=== PATIENT | male | born 1950 | race Caucasian/White ===

== ENCOUNTER 2018-08-17 20:39 | Inpatient (IN) | payer MEDICARE, OTHER ==
--- NOTE | 2018-08-17 23:09 | EDM.PDOC ---
ED HPI GENERAL MEDICAL PROBLEM - General Chief Complaint: Diabetic Complaint Stated Complaint: BLOOD SUGARS Time Seen by Provider: 08/17/18 21:16 Source of Information: Reports: Patient, EMS History Limitations: Reports: No Limitations - History of Present Illness INITIAL COMMENTS - FREE TEXT/NARRATIVE: This gentleman arrived by EMS because of low blood sugar. Somebody came to visit him and found that he was sort of" out of it". His blood sugar then was 49. He was given some oral glucose and followed by an amp of D50 and his blood sugar went up to 176. Patient says that he doesn't think he's had anything to eat all day long and he said he just doesn't know why. He maybe he ate some breakfast he doesn't really know. EMS said the cold about 5 would tics off of him. Patient says he gets tics all the time so that's no big deal. He said he's had 100s of tics already this spring. He has not taken any insulins today Treatments PRODUCTION DISPATCHER: Reports: IV/IO, Other (see below) Other Treatments PRODUCTION DISPATCHER: D50 and oral glucose - Related Data Allergies Allergy/AdvReac Type Severity Reaction Status Date / Time atorvastatin Allergy Other Verified 08/17/18 20:44 simvastatin Allergy Other Verified 08/17/18 20:44 Home Meds: Home Meds Levothyroxine Sodium [Synthroid] 125 mcg PO DAILY 03/26/18 [History] Lisinopril 2.5 mg PO DAILY 03/26/18 [History] Magnesium Oxide 420 mg PO DAILY 03/26/18 [History] metFORMIN [Glucophage] 1,000 mg PO BIDMEALS 03/26/18 [History] Insulin Glarg,Human.Rec.Analog [Lantus Solostar] 35 unit SUBCUT DAILY 08/17/18 [ History] Past Medical History Cardiovascular History: Reports: Hypertension Musculoskeletal History: Reports: Fracture, Other (See Below) Other Musculoskeletal History: Left hand at 8 years old. - Infectious Disease History Infectious Disease History: Reports: Chicken Pox - Past Surgical History HEENT Surgical History: Reports: Adenoidectomy, Tonsillectomy Social & Family History - Tobacco Use Smoking Status *Q: Never Smoker Second Hand Smoke Exposure: No - Caffeine Use Caffeine Use: Reports: Coffee - Recreational Drug Use Recreational Drug Use: No ED ROS GENERAL - Review of Systems Review Of Systems: ROS reveals no pertinent complaints other than HPI. ED EXAM GENERAL NO PERIP PULSE - Physical Exam Exam: See Below Exam Limited By: No Limitations General Appearance: Alert, WD/WN, No Apparent Distress Eye Exam: Bilateral Eye: Normal Inspection Throat/Mouth: Normal Inspection, Normal Oropharynx Head: Atraumatic Neck: Normal Inspection Respiratory/Chest: Lungs Clear Cardiovascular: Regular Rate, Rhythm GI/Abdominal: Soft, Non-Tender Extremities: Normal Inspection Neurological: Alert, Oriented, CN II-XII Intact, Normal Cognition, No Motor/ Sensory Deficits Psychiatric: Normal Affect Skin Exam: Warm, Dry Course - Vital Signs Last Recorded V/S: Last Vital Signs Temp 35.8 C 08/17/18 20:58 Pulse 116 H 08/17/18 20:58 Resp 14 08/17/18 20:58 BP 120/84 08/17/18 20:58 Pulse Ox 93 L 08/17/18 20:58 - Orders/Labs/Meds Labs: Laboratory Tests 08/17/18 08/17/18 Range/Units 21:44 21:44 WBC 14.2 H (4.5-11.0) K/uL RBC 4.58 (4.30-5.90) M/uL Hgb 15.4 H (12.0-15.0) g/dL Hct 44.4 (40.0-54.0) % MCV 97 (80-98) fL MCH 34 H (27-31) pg MCHC 35 (32-36) % Plt Count 111 L (150-400) K/uL Neut % (Auto) 86 H (36-66) % Lymph % (Auto) 8 L (24-44) % Ceiba % (Auto) 6 (2-6) % Eos % (Auto) 0 L (2-4) % Baso % (Auto) 0 (0-1) % Sodium 134 L (140-148) mmol/L Potassium 5.3 H (3.6-5.2) mmol/L Chloride 99 L (100-108) mmol/L Carbon Dioxide 22 (21-32) mmol/L Anion Gap 18.3 H (5.0-14.0) mmol/L BUN 38 H (7-18) mg/dL Creatinine 1.5 H (0.8-1.3) mg/dL Est Cr Clr Drug Dosing 44.97 mL/min Estimated GFR (MDRD) 46 L (>60) Glucose 262 H (74-106) mg/dL Calcium 9.8 (8.5-10.1) mg/dL Total Bilirubin 1.2 H (0.2-1.0) mg/dL AST 47 H (15-37) U/L ALT 28 (12-78) U/L Alkaline Phosphatase 60 (46-116) U/L Total Protein 7.1 (6.4-8.2) g/dL Albumin 3.3 L (3.4-5.0) g/dL Globulin 3.8 H (2.3-3.5) g/dL Albumin/Globulin Ratio 0.9 L (1.2-2.2) - Re-Assessments/Exams Free Text/Narrative Re-Assessment/Exam: 08/17/18 23:09 Labs as noted. Patient was fed a sandwich and snacks. Blood sugar has not been rechecked. Departure - Departure Time of Disposition: 23:10 Disposition: Home, Self-Care 01 Condition: Fair Clinical Impression: Hypoglycemia - Discharge Information Referrals: PCP,None [Primary Care Provider] - Additional Instructions: Don't take any insulin-dependent tonight. Be sure you eat regularly every day and check your blood sugar as needed. Take your insolent tomorrow evening at the normal time.
[2018-08-18] MEDS ORDERED: Sodium Chloride 0.9% 1,000 ML IV SCH (07:30)
[2018-08-18] MEDS ORDERED: metFORMIN 500 MG Tab PO ONE (07:48)
--- NOTE | 2018-08-18 08:02 | CRLCR ---
INDICATION: Hypoxia. TECHNIQUE: Single view portable. FINDINGS: Heart size is normal. Mild ectasia of the thoracic aorta is noted. No acute infiltrate or pulmonary edema is seen. No pleural fluid is seen. IMPRESSION: Clear chest. No acute infiltrate or pulmonary edema is seen. Dictated by Alonso Grande MD @ 08/18/2018 8:01:19 AM Dictated by: Alonso Grande MD @ 08/18/2018 08:01:24 (Electronically Signed)
[2018-08-18] MEDS ORDERED: Doxycycline 100 MG Cap PO ONE (08:14)
[2018-08-18] MEDS ORDERED: Insulin Glargine,Human Rec. Analog 100 Units/ML 3 ML Pen SUBCUT SCH (09:00)
--- NOTE | 2018-08-18 10:20 | PCM.HP ---
H&P History of Present Illness - General Date of Service: 08/18/18 Admit Problem/Dx: Admission Diagnosis/Problem Admission Diagnosis/Problem Weakness Source of Information: Patient, Provider, RN Notes Reviewed History Limitations: Reports: No Limitations - History of Present Illness Initial Comments - Free Text/Narative: Mr. Miller is a 67-year-old gentleman who was admitted through the emergency department with weakness and hypoglycemia. He lives independently and is very vague concerning recent history and symptoms. He had been apparently found on the floor of his trailer, unresponsive. When EMS arrived he was found to be hypoglycemic and became more alert and interactive after receiving glucose. He reports that he had been taking his diabetes medication but had not had much to eat on that day. He also reports that he has become progressively more weak with a decrease in appetite. He is received IV fluids in the emergency department but was still on steady enough on his feet that he was not felt to be safe for discharge. He was fairly unkempt when he arrived in the emergency department and was cleaned up by nursing staff. Reevaluation including was found to have 15 embedded ticks. In addition to the fluids he is been started on IV anabiotic therapy with doxycycline. Serology for tickborne illnesses has been sent but not will not be available for several days. - Related Data Allergies/Adverse Reactions: Allergies Allergy/AdvReac Type Severity Reaction Status Date / Time atorvastatin Allergy Other Verified 08/17/18 20:44 simvastatin Allergy Other Verified 08/17/18 20:44 Home Medications: Home Meds Levothyroxine Sodium [Synthroid] 125 mcg PO DAILY 03/26/18 [History] Lisinopril 2.5 mg PO DAILY 03/26/18 [History] Magnesium Oxide 420 mg PO DAILY 03/26/18 [History] metFORMIN [Glucophage] 1,000 mg PO BIDMEALS 03/26/18 [History] Insulin Glarg,Human.Rec.Analog [Lantus Solostar] 35 unit SUBCUT DAILY 08/17/18 [ History] Past Medical History Cardiovascular History: Reports: Hypertension Musculoskeletal History: Reports: Fracture, Other (See Below) Other Musculoskeletal History: Left hand at 8 years old. - Infectious Disease History Infectious Disease History: Reports: Chicken Pox - Past Surgical History HEENT Surgical History: Reports: Adenoidectomy, Tonsillectomy Social & Family History - Tobacco Use Smoking Status *Q: Never Smoker Second Hand Smoke Exposure: No - Caffeine Use Caffeine Use: Reports: Coffee - Recreational Drug Use Recreational Drug Use: No H&P Review of Systems - Review of Systems: Review Of Systems: See Below General: Reports: Weakness. Denies: Fever, Chills HEENT: Reports: No Symptoms Pulmonary: Reports: No Symptoms Cardiovascular: Reports: No Symptoms Gastrointestinal: Reports: No Symptoms Genitourinary: Reports: No Symptoms Musculoskeletal: Reports: No Symptoms Skin: Reports: No Symptoms Psychiatric: Reports: No Symptoms Neurological: Reports: No Symptoms Hematologic/Lymphatic: Reports: No Symptoms Immunologic: Reports: No Symptoms Exam - Exam Exam: See Below - Vital Signs Vital Signs: Last Vital Signs Temp 97.7 F 08/18/18 07:37 Pulse 106 H 08/18/18 10:06 Resp 16 08/18/18 10:06 BP 111/61 08/18/18 10:06 Pulse Ox 93 L 08/18/18 10:06 Weight: 191 lb - Exam Quality Assessment: DVT Prophylaxis General: Alert, Oriented, Cooperative HEENT: Conjunctiva Clear, Hearing Intact, Mucosa Moist & [place], Normal Nasal Septum, Posterior Pharynx Clear, Pupils Equal Neck: Supple, Trachea Midline, +2 Carotid Pulse wo Bruit Lungs: Clear to Auscultation, Normal Respiratory Effort Cardiovascular: Regular Rate, Regular Rhythm, Normal S1, Normal S2. No: Systolic Murmur, Diastolic Murmur GI/Abdominal Exam: Soft, Non-Tender, No Organomegaly, No Distention Back Exam: Normal Inspection, Full Range of Motion Extremities: Non-Tender, No Pedal Edema Skin: Warm, Dry, Intact Neurological: Cranial Nerves Intact, Strength Equal Bilateral, Normal Speech, Normal Tone, Sensation Intact. No: Focal Deficit Neuro Extensive - Mental Status: Alert, Oriented x3, Normal Mood/Affect, Normal Cognition, Memory Intact - Patient Data Lab Results Last 24 hrs: Laboratory Results - last 24 hr 08/17/18 08/17/18 08/18/18 Range/Units 21:44 21:44 07:35 WBC 14.2 H (4.5-11.0) K/uL RBC 4.58 (4.30-5.90) M/uL Hgb 15.4 H (12.0-15.0) g/dL Hct 44.4 (40.0-54.0) % MCV 97 (80-98) fL MCH 34 H (27-31) pg MCHC 35 (32-36) % Plt Count 111 L (150-400) K/uL Neut % (Auto) 86 H (36-66) % Lymph % (Auto) 8 L (24-44) % Pender % (Auto) 6 (2-6) % Eos % (Auto) 0 L (2-4) % Baso % (Auto) 0 (0-1) % Sodium 134 L (140-148) mmol/L Potassium 5.3 H (3.6-5.2) mmol/L Chloride 99 L (100-108) mmol/L Carbon Dioxide 22 (21-32) mmol/L Anion Gap 18.3 H (5.0-14.0) mmol/L BUN 38 H (7-18) mg/dL Creatinine 1.5 H (0.8-1.3) mg/dL Est Cr Clr Drug Dosing 44.97 mL/min Estimated GFR (MDRD) 46 L (>60) Glucose 262 H (74-106) mg/dL Calcium 9.8 (8.5-10.1) mg/dL Total Bilirubin 1.2 H (0.2-1.0) mg/dL AST 47 H (15-37) U/L ALT 28 (12-78) U/L Alkaline Phosphatase 60 (46-116) U/L Creatine Kinase (39-308) U/L Troponin I (0.000-0.056) ng/mL C-Reactive Protein 2.95 H (0.0-0.3) mg/dL Total Protein 7.1 (6.4-8.2) g/dL Albumin 3.3 L (3.4-5.0) g/dL Globulin 3.8 H (2.3-3.5) g/dL Albumin/Globulin Ratio 0.9 L (1.2-2.2) TSH, Ultra Sensitive (0.358-3.740) uIU/mL Urine Color Urine Appearance Urine pH (4.5-8.0) Ur Specific Jenkins (1.008-1.030) Urine Protein (NEGATIVE) mg/dL Urine Glucose (UA) (NEGATIVE) mg/dL Urine Ketones (NEGATIVE) mg/dL Urine Occult Blood (NEGATIVE) Urine Nitrite (NEGAITVE) Urine Bilirubin (NEGATIVE) Urine Urobilinogen (NORMAL) mg/dL Ur Leukocyte Esterase (NEGATIVE) Urine RBC (0-5) Urine WBC (0-5) Ur Epithelial Cells Amorphous Sediment Urine Bacteria Urine Mucus 08/18/18 08/18/18 08/18/18 Range/Units 07:35 07:40 08:08 WBC (4.5-11.0) K/uL RBC (4.30-5.90) M/uL Hgb (12.0-15.0) g/dL Hct (40.0-54.0) % MCV (80-98) fL MCH (27-31) pg MCHC (32-36) % Plt Count (150-400) K/uL Neut % (Auto) (36-66) % Lymph % (Auto) (24-44) % Pender % (Auto) (2-6) % Eos % (Auto) (2-4) % Baso % (Auto) (0-1) % Sodium (140-148) mmol/L Potassium (3.6-5.2) mmol/L Chloride (100-108) mmol/L Carbon Dioxide (21-32) mmol/L Anion Gap (5.0-14.0) mmol/L BUN (7-18) mg/dL Creatinine (0.8-1.3) mg/dL Est Cr Clr Drug Dosing mL/min Estimated GFR (MDRD) (>60) Glucose (74-106) mg/dL Calcium (8.5-10.1) mg/dL Total Bilirubin (0.2-1.0) mg/dL AST (15-37) U/L ALT (12-78) U/L Alkaline Phosphatase (46-116) U/L Creatine Kinase 572 H (39-308) U/L Troponin I (0.000-0.056) ng/mL C-Reactive Protein (0.0-0.3) mg/dL Total Protein (6.4-8.2) g/dL Albumin (3.4-5.0) g/dL Globulin (2.3-3.5) g/dL Albumin/Globulin Ratio (1.2-2.2) TSH, Ultra Sensitive 1.474 (0.358-3.740) uIU/mL Urine Color Yellow Urine Appearance Clear Urine pH 5.0 (4.5-8.0) Ur Specific Jenkins 1.010 (1.008-1.030) Urine Protein Negative (NEGATIVE) mg/dL Urine Glucose (UA) >1000 H (NEGATIVE) mg/dL Urine Ketones 150 H (NEGATIVE) mg/dL Urine Occult Blood Negative (NEGATIVE) Urine Nitrite Negative (NEGAITVE) Urine Bilirubin Negative (NEGATIVE) Urine Urobilinogen Normal (NORMAL) mg/dL Ur Leukocyte Esterase Small (NEGATIVE) Urine RBC Not seen (0-5) Urine WBC 5-10 H (0-5) Ur Epithelial Cells Not seen Amorphous Sediment Not seen Urine Bacteria Not seen Urine Mucus Not seen 08/18/18 Range/Units 08:14 WBC (4.5-11.0) K/uL RBC (4.30-5.90) M/uL Hgb (12.0-15.0) g/dL Hct (40.0-54.0) % MCV (80-98) fL MCH (27-31) pg MCHC (32-36) % Plt Count (150-400) K/uL Neut % (Auto) (36-66) % Lymph % (Auto) (24-44) % Pender % (Auto) (2-6) % Eos % (Auto) (2-4) % Baso % (Auto) (0-1) % Sodium (140-148) mmol/L Potassium (3.6-5.2) mmol/L Chloride (100-108) mmol/L Carbon Dioxide (21-32) mmol/L Anion Gap (5.0-14.0) mmol/L BUN (7-18) mg/dL Creatinine (0.8-1.3) mg/dL Est Cr Clr Drug Dosing mL/min Estimated GFR (MDRD) (>60) Glucose (74-106) mg/dL Calcium (8.5-10.1) mg/dL Total Bilirubin (0.2-1.0) mg/dL AST (15-37) U/L ALT (12-78) U/L Alkaline Phosphatase (46-116) U/L Creatine Kinase (39-308) U/L Troponin I < 0.017 (0.000-0.056) ng/mL C-Reactive Protein (0.0-0.3) mg/dL Total Protein (6.4-8.2) g/dL Albumin (3.4-5.0) g/dL Globulin (2.3-3.5) g/dL Albumin/Globulin Ratio (1.2-2.2) TSH, Ultra Sensitive (0.358-3.740) uIU/mL Urine Color Urine Appearance Urine pH (4.5-8.0) Ur Specific Jenkins (1.008-1.030) Urine Protein (NEGATIVE) mg/dL Urine Glucose (UA) (NEGATIVE) mg/dL Urine Ketones (NEGATIVE) mg/dL Urine Occult Blood (NEGATIVE) Urine Nitrite (NEGAITVE) Urine Bilirubin (NEGATIVE) Urine Urobilinogen (NORMAL) mg/dL Ur Leukocyte Esterase (NEGATIVE) Urine RBC (0-5) Urine WBC (0-5) Ur Epithelial Cells Amorphous Sediment Urine Bacteria Urine Mucus Result Diagrams: 08/18/18 12:42 08/18/18 12:42 *Q Meaningful Use (ADM) - VTE Risk Assess *Q Each Risk Factor Represents 1 Point: None Total Score 1 Point Risk Factors: 0 Each Risk Factor Represents 2 Points: Age 60 - 74 Years Total Score 2 Point Risk Factors: 2 Each Risk Factor Represents 3 Points: None Total Score 3 Point Risk Factors: 0 Each Risk Factor Represents 5 Points: None Total Score 5 Point Risk Factors: 0 Venous Thromboembolism Risk Factor Score *Q: 2 Problem List Initiated/Reviewed/Updated: Yes Orders Last 24hrs: Active Orders 24 hr Category Date Time Status Patient Status Manage Transfer [TRANSFER] Routine ADT 08/18/18 10:14 Active EKG Documentation Completion [RC] ASDIRECTED Care 08/18/18 07:40 Active BABESIA MICROTI ANTIBODY PANEL Stat Lab 08/18/18 07:35 Received E. CHAFFEENSIS-HME (MONOCYTIC) Stat Lab 08/18/18 07:35 Received LYME, TOTAL AB TEST/REFLEX Stat Lab 08/18/18 07:35 Received Insulin Glarg,Human.Rec.Analog [LantUS Solostar] Med 08/18/18 09:00 Active 35 units SUBCUT DAILY Sodium Chloride 0.9% [Normal Saline] 1,000 ml Med 08/18/18 07:30 Active IV ASDIRECTED Resuscitation Status Routine Resus Stat 08/18/18 10:15 Ordered EKG 12 Lead [EK] Routine Ther 08/18/18 07:40 Ordered Medication Orders Sodium Chloride (Normal Saline) 1,000 mls @ 999 mls/hr IV ASDIRECTED [facility] Last Admin: 08/18/18 07:39 Dose: 999 mls/hr Insulin Glargine (Lantus Solostar) 35 units SUBCUT DAILY [facility] Last Admin: 08/18/18 08:01 Dose: 35 units Assessment/Plan Comment:: ASSESSMENT AND PLAN ANAPLASMOSIS-most likely cause of recent symptoms and weakness, history is very vague but he is been not aware of any specific fevers. Tubal ticks founded embedded on his body on evaluation in the emergency department. -Ticks serology pending -IV fluids for hydration -Doxycycline 100 mg IV every 12 hours TYPE 2 DIABETES MELLITUS-on initial evaluation was found to be hypoglycemic, now hyperglycemic. -Continue usual dose of long acting insulin -Moderate dose sliding scale Humalog -4 times a day glucometers MAINTENANCE ISSUES -DVT prophylaxis;Lovenox 40 mg subcutaneous daily -GI prophylaxis;Not indicated -Landry catheter;Not indicated -Nutrition; consistent carb diet -Nicotine dependence;Not indicated CODE STATUS-FULL CODE ADMISSION STATUS-patient will be admitted to inpatient status, expect at least a 2 night hospital stay for evaluation and management of problems as outlined above. At the time of this admission I do not reasonably expected evaluation and management of this problem will require more than a 96 hour hospital stay. DISPOSITION-anticipate discharge to home after the hospital stay. PRIMARY CARE PROVIDER-
[2018-08-18] MEDS ORDERED: Glucose Gel 15 GM in 37.5 GM Tube PO PRN (12:29)
[2018-08-18] MEDS ORDERED: 50% Dextrose in Water 50 ML Syringe IV PRN (12:29)
[2018-08-18] MEDS ORDERED: Ondansetron 4 MG/2 ML SDV IV PRN (12:29)
[2018-08-18] MEDS ORDERED: Sodium Chloride 0.9% 10 ML Syringe FLUSH PRN (12:29)
[2018-08-18] MEDS ORDERED: Acetaminophen 325 MG Tab PO PRN (12:29)
[2018-08-18] MEDS ORDERED: oxyCODONE 5 MG Tab PO PRN (12:29)
[2018-08-18] MEDS ORDERED: Polyethylene Glycol 3350 Powder 17 GM Packet PO PRN (12:29)
[2018-08-18] MEDS: Sodium Chloride 0.9% 1,000 ML IV SCH ×2 (12:56→21:56)
[2018-08-18] MEDS: Enoxaparin 40 MG/0.4 ML Syringe SUBCUT SCH (13:14)
[2018-08-18] MEDS: Doxycycline 100 MG in Sodium Chloride 0.9% 100 ML IV SCH (13:15)
[2018-08-18] MEDS: Insulin Lispro 100 Unit/ML 3 ML KwikPen SUBCUT SCH ×3 (13:34→21:04)
[2018-08-18] MEDS ORDERED: Insulin Lispro 100 Unit/ML 3 ML KwikPen SUBCUT ONE (13:45)
[2018-08-18] MEDS ORDERED: Insulin Lispro 100 Unit/ML 3 ML KwikPen SUBCUT STA (16:30)
[2018-08-18] MEDS: metFORMIN 500 MG Tab PO SCH (18:09)
[2018-08-19] MEDS: Doxycycline 100 MG in Sodium Chloride 0.9% 100 ML IV SCH ×2 (03:04→13:35)
[2018-08-19] MEDS: Sodium Chloride 0.9% 1,000 ML IV SCH (07:04)
[2018-08-19] MEDS: Insulin Lispro 100 Unit/ML 3 ML KwikPen SUBCUT SCH ×4 (07:27→21:12)
[2018-08-19] MEDS: Levothyroxine 100 MCG, Levothyroxine 25 MCG PO SCH ×2 (07:27)
[2018-08-19] MEDS ORDERED: Non-Formulary Medication 1 Each (Metformin [Glucophage] 1,000 MG) PO SCH (08:00)
[2018-08-19] MEDS: metFORMIN 500 MG Tab PO SCH ×2 (08:25→17:07)
[2018-08-19] MEDS: Magnesium Sulfate/Water 2 GM in Premix Bag 1 BAG IV SCH ×3 (08:44→19:43)
[2018-08-19] MEDS: Magnesium Oxide 400 MG Tab PO SCH ×2 (08:46→21:12)
[2018-08-19] MEDS: Lisinopril 2.5 MG Tab PO SCH (08:47)
[2018-08-19] MEDS ORDERED: Magnesium Oxide 400 MG Tab PO SCH (09:00)
[2018-08-19] MEDS ORDERED: Insulin Glargine,Human Rec. Analog 100 Units/ML 3 ML Pen SUBCUT SCH (09:00)
[2018-08-19] MEDS ORDERED: Non-Formulary Medication 1 Each (Levothyroxine Sodium [Synthroid] 125 MCG) PO SCH (09:00)
[2018-08-19] MEDS: Insulin Glargine,Human Rec. Analog 100 Units/ML 3 ML Pen SUBCUT SCH (13:22)
[2018-08-19] MEDS: Enoxaparin 40 MG/0.4 ML Syringe SUBCUT SCH (13:36)
--- NOTE | 2018-08-19 14:40 | PCM.PN ---
- General Info Date of Service: 08/19/18 Subjective Update: Mr. Miller has been stable since admission, no significant temperature elevations. He has remained hemodynamically stable and reports that he feels improved following hydration and antibiotic therapy. Overall laboratory studies been stable other than a decrease in magnesium level. He remains fairly weak and unsteady with transfers and ambulation. At the present time does not appear to be safe for discharge to his current living situation. Functional Status: Reports: Tolerating Diet, Urinating - Review of Systems General: Reports: Weakness. Denies: Fever, Chills Pulmonary: Reports: Shortness of Breath. Denies: Pleuritic Chest Pain, Cough, Sputum, Hemoptysis, Wheezing Cardiovascular: Reports: Dyspnea on Exertion. Denies: Chest Pain, Palpitations , Orthopnea, PND, Edema, Lightheadedness Gastrointestinal: Reports: No Symptoms - Patient Data Vitals - Most Recent: Last Vital Signs Temp 95.4 F 08/19/18 14:29 Pulse 102 H 08/19/18 14:29 Resp 18 08/19/18 14:29 BP 135/68 08/19/18 14:29 Pulse Ox 97 08/19/18 14:29 Weight - Most Recent: 191 lb I&O - Last 24 Hours: Intake & Output 08/18/18 08/19/18 08/19/18 22:59 06:59 14:59 Intake Total 1180 1937 1010 Output Total 100 325 200 Balance 1080 1612 810 Lab Results Last 24 Hours: Laboratory Results - last 24 hr 08/19/18 08/19/18 Range/Units 05:00 05:57 WBC 11.6 H (4.5-11.0) K/uL RBC 4.07 L (4.30-5.90) M/uL Hgb 13.7 (12.0-15.0) g/dL Hct 40.1 (40.0-54.0) % MCV 99 H (80-98) fL MCH 34 H (27-31) pg MCHC 34 (32-36) % Plt Count 127 L (150-400) K/uL Neut % (Auto) 51 (36-66) % Lymph % (Auto) 33 (24-44) % Anderson % (Auto) 12 H (2-6) % Eos % (Auto) 3 (2-4) % Baso % (Auto) 1 (0-1) % Sodium 141 (140-148) mmol/L Potassium 4.5 (3.6-5.2) mmol/L Chloride 111 H (100-108) mmol/L Carbon Dioxide 21 (21-32) mmol/L Anion Gap 13.5 (5.0-14.0) mmol/L BUN 28 H (7-18) mg/dL Creatinine 0.8 (0.8-1.3) mg/dL Est Cr Clr Drug Dosing 84.31 mL/min Estimated GFR (MDRD) > 60 (>60) Glucose 29 L* (74-106) mg/dL Calcium 9.0 (8.5-10.1) mg/dL Magnesium 1.4 L (1.8-2.4) mg/dL Creatine Kinase 259 (39-308) U/L Med Orders - Current: Current Medications Acetaminophen (Tylenol) 650 mg PO Q4H PRN PRN Reason: Pain (Mild 1-3)/fever Dextrose (Glutose 15) 15 gm PO ONETIME PRN PRN Reason: Hypoglycemia Last Admin: 08/19/18 07:33 Dose: 15 gm Dextrose/Water (Dextrose 50% In Water) 50 ml IV ONETIME PRN PRN Reason: Hypoglycemia Enoxaparin Sodium (Lovenox) 40 mg SUBCUT Q24H [facility] Last Admin: 08/19/18 13:36 Dose: 40 mg Doxycycline Hyclate 100 mg/ (Sodium Chloride) 100 mls @ 100 mls/hr IV Q12H [facility] Last Admin: 08/19/18 13:35 Dose: 100 mls/hr Magnesium Sulfate 2 gm/ Premix 50 mls @ 25 mls/hr IV Q6H [facility] Stop: 08/19/18 21:59 Last Admin: 08/19/18 13:35 Dose: 25 mls/hr Insulin Glargine (Lantus Solostar) 20 units SUBCUT DAILY [facility] Last Admin: 08/19/18 13:22 Dose: 20 units Insulin Human Lispro (Humalog) 0 unit SUBCUT QIDACANDBED [facility]; Protocol Last Admin: 08/19/18 11:44 Dose: 15 units Levothyroxine Sodium 100 mcg/ (Levothyroxine Sodium 25 mcg) 125 mcg PO DAILY@ 0730 [facility] Last Admin: 08/19/18 07:27 Dose: 125 mcg Lisinopril (Prinivil) 2.5 mg PO DAILY [facility] Last Admin: 08/19/18 08:47 Dose: 2.5 mg Magnesium Oxide (Magnesium Oxide) 400 mg PO BID [facility] Last Admin: 08/19/18 08:46 Dose: 400 mg Metformin HCl (Glucophage) 1,000 mg PO BIDMEALS [facility] Last Admin: 08/19/18 08:25 Dose: 1,000 mg Ondansetron HCl (Zofran) 4 mg IV Q4H PRN PRN Reason: Nausea/Vomiting Oxycodone HCl (Oxycodone) 5 mg PO Q4H PRN PRN Reason: Pain (moderate 4-6) Polyethylene Glycol (Miralax) 17 gm PO DAILY PRN PRN Reason: Constipation Sodium Chloride (Saline Flush) 10 ml FLUSH ASDIRECTED PRN PRN Reason: Keep Vein Open Discontinued Medications Doxycycline Hyclate (Vibramycin) 100 mg PO ONETIME ONE Stop: 08/18/18 08:15 Last Admin: 08/18/18 08:37 Dose: 100 mg Sodium Chloride (Normal Saline) 1,000 mls @ 999 mls/hr IV ASDIRECTED [facility] Last Admin: 08/18/18 07:39 Dose: 999 mls/hr Sodium Chloride (Normal Saline) 1,000 mls @ 125 mls/hr IV ASDIRECTED [facility] Last Admin: 08/19/18 07:04 Dose: 125 mls/hr Insulin Glargine (Lantus Solostar) 35 units SUBCUT DAILY [facility] Last Admin: 08/18/18 08:01 Dose: 35 units Insulin Glargine (Lantus Solostar) 35 units SUBCUT DAILY [facility] Insulin Human Lispro (Humalog) 0 unit SUBCUT QIDACANDBED [facility]; Protocol Last Admin: 08/18/18 17:18 Dose: Not Given Insulin Human Lispro (Humalog) 14 unit SUBCUT ONETIME ONE Stop: 08/18/18 13:46 Last Admin: 08/18/18 13:35 Dose: 14 unit Insulin Human Lispro (Humalog) 16 unit SUBCUT ONETIME STA Stop: 08/18/18 16:31 Last Admin: 08/18/18 16:49 Dose: 16 unit Metformin HCl (Glucophage) 1,000 mg PO ONETIME ONE Stop: 08/18/18 07:49 Last Admin: 08/18/18 08:00 Dose: 1,000 mg Non-Formulary Medication (Metformin [Glucophage]) 1,000 mg PO BIDMEALS [facility] - Exam Quality Assessment: DVT Prophylaxis General: Alert, Oriented, Cooperative, Mild Distress Lungs: Clear to Auscultation, Normal Respiratory Effort Cardiovascular: Regular Rate, Regular Rhythm, No Murmurs GI/Abdominal Exam: Soft, Non-Tender, No Organomegaly, No Distention Extremities: Non-Tender, No Pedal Edema - Problem List Review Problem List Initiated/Reviewed/Updated: Yes - My Orders Last 24 Hours: My Active Orders 08/18/18 14:00 Doxycycline [Vibramycin] 100 mg Sodium Chloride 0.9% [Normal Saline] 100 ml IV Q12H Enoxaparin [Lovenox] 40 mg SUBCUT Q24H 08/18/18 17:26 metFORMIN [Glucophage] 1,000 mg PO BIDMEALS 08/18/18 20:00 Insulin Lispro [HumaLOG] See Protocol SUBCUT QIDACANDBED 08/19/18 07:30 Levothyroxine [Synthroid] 125 mcg PO DAILY@0730 08/19/18 08:00 Magnesium Sulfate/Water [Magnesium Sulfate in Water Premix] 2 gm Premix Bag 1 bag IV Q6H 08/19/18 09:00 Insulin Glarg,Human.Rec.Analog [LantUS Solostar] 20 units SUBCUT DAILY Lisinopril [Prinivil] 2.5 mg PO DAILY Magnesium Oxide 400 mg PO BID 08/19/18 14:33 Convert IV to Saline Lock [OM.PC] Routine 08/19/18 16:30 GLUCOSE POC LAB TO COLLECT [POC] QIDACANDBED 08/19/18 21:00 GLUCOSE POC LAB TO COLLECT [POC] QIDACANDBED 08/20/18 05:00 INR,PT,PROTHROMBIN TIME [COAG] Timed MAGNESIUM [CHEM] Timed 08/20/18 07:30 GLUCOSE POC LAB TO COLLECT [POC] QIDACANDBED 08/20/18 11:30 GLUCOSE POC LAB TO COLLECT [POC] QIDACANDBED 08/20/18 16:30 GLUCOSE POC LAB TO COLLECT [POC] QIDACANDBED 08/20/18 21:00 GLUCOSE POC LAB TO COLLECT [POC] QIDACANDBED 08/21/18 07:30 GLUCOSE POC LAB TO COLLECT [POC] QIDACANDBED 08/21/18 11:30 GLUCOSE POC LAB TO COLLECT [POC] QIDACANDBED 08/21/18 16:30 GLUCOSE POC LAB TO COLLECT [POC] QIDACANDBED 08/21/18 21:00 GLUCOSE POC LAB TO COLLECT [POC] QIDACANDBED 08/22/18 07:30 GLUCOSE POC LAB TO COLLECT [POC] QIDACANDBED 08/22/18 11:30 GLUCOSE POC LAB TO COLLECT [POC] QIDACANDBED 08/22/18 16:30 GLUCOSE POC LAB TO COLLECT [POC] QIDACANDBED 08/22/18 21:00 GLUCOSE POC LAB TO COLLECT [POC] QIDACANDBED 08/23/18 07:30 GLUCOSE POC LAB TO COLLECT [POC] QIDACANDBED 08/23/18 11:30 GLUCOSE POC LAB TO COLLECT [POC] QIDACANDBED - Plan Plan:: ASSESSMENT AND PLAN ANAPLASMOSIS-most likely cause of recent symptoms and weakness, history is very vague but he is been not aware of any specific fevers. 26 ticks found on his body on evaluation in the emergency department. He feels improved since admission, no significant temperature elevations. Remains weak and has difficulty with transfers and ambulation. Not safe to discharge back to his current living situation -Tick serology pending -Saline lock IV -Doxycycline 100 mg IV every 12 hours TYPE 2 DIABETES MELLITUS-appears to be a fairly brittle diabetic. On initial evaluation by EMS was found to be severely hypoglycemic. During the day yesterday had significant glucose level elevation in the 400 range. Now this morning glucose level was significantly low. -Decrease Lantus insulin to 20 units daily -Moderate dose sliding scale Humalog -Metformin 1 g by mouth twice a day -4 times a day glucometers MAINTENANCE ISSUES -DVT prophylaxis;Lovenox 40 mg subcutaneous daily -GI prophylaxis;Not indicated -Landry catheter;Not indicated -Nutrition; consistent carb diet -Nicotine dependence;Not indicated CODE STATUS-FULL CODE ADMISSION STATUS-patient will be admitted to inpatient status, expect at least a 2 night hospital stay for evaluation and management of problems as outlined above. At the time of this admission I do not reasonably expected evaluation and management of this problem will require more than a 96 hour hospital stay. DISPOSITION-anticipate discharge to home after the hospital stay. PRIMARY CARE PROVIDER-
[2018-08-20] MEDS: Doxycycline 100 MG in Sodium Chloride 0.9% 100 ML IV SCH (03:08)
[2018-08-20] MEDS: Levothyroxine 100 MCG, Levothyroxine 25 MCG PO SCH ×2 (07:49)
[2018-08-20] MEDS: metFORMIN 500 MG Tab PO SCH ×2 (07:49→17:15)
[2018-08-20] MEDS: Insulin Lispro 100 Unit/ML 3 ML KwikPen SUBCUT SCH ×4 (07:49→21:24)
[2018-08-20] MEDS: Lisinopril 2.5 MG Tab PO SCH (08:41)
[2018-08-20] MEDS: Magnesium Oxide 400 MG Tab PO SCH ×2 (08:42→21:19)
[2018-08-20] MEDS: Insulin Glargine,Human Rec. Analog 100 Units/ML 3 ML Pen SUBCUT SCH (08:42)
[2018-08-20] MEDS ORDERED: Magnesium Hydroxide 400 MG/5 ML Susp 30 ML Cup PO PRN (10:23)
--- NOTE | 2018-08-20 12:48 | PCM.PN ---
- General Info Date of Service: 08/20/18 Subjective Update: There were no acute events overnight. Patient has not had any fevers. Appetite has been improving. Strength is been slowly improving but he does remain weak and unsteady on his feet. No complaints of abdominal pain or nausea. Functional Status: Reports: Pain Controlled, Tolerating Diet - Review of Systems General: Reports: Weakness. Denies: Fever - Patient Data Vitals - Most Recent: Last Vital Signs Temp 35.8 C 08/20/18 11:24 Pulse 84 08/20/18 11:24 Resp 16 08/20/18 11:24 BP 142/92 H 08/20/18 11:24 Pulse Ox 100 08/20/18 11:24 Weight - Most Recent: 82.554 kg I&O - Last 24 Hours: Intake & Output 08/19/18 08/20/18 08/20/18 22:59 06:59 14:59 Intake Total 965 940 360 Output Total 425 150 Balance 540 940 210 Lab Results Last 24 Hours: Laboratory Results - last 24 hr 08/20/18 08/20/18 Range/Units 05:45 05:45 PT 10.2 (9.5-12.0) sec INR 0.92 (0.80-1.20) Magnesium 1.7 L (1.8-2.4) mg/dL Med Orders - Current: Current Medications Acetaminophen (Tylenol) 650 mg PO Q4H PRN PRN Reason: Pain (Mild 1-3)/fever Dextrose (Glutose 15) 15 gm PO ONETIME PRN PRN Reason: Hypoglycemia Last Admin: 08/19/18 07:33 Dose: 15 gm Dextrose/Water (Dextrose 50% In Water) 50 ml IV ONETIME PRN PRN Reason: Hypoglycemia Doxycycline Hyclate (Vibramycin) 100 mg PO BID [facility] Enoxaparin Sodium (Lovenox) 40 mg SUBCUT Q24H [facility] Last Admin: 08/19/18 13:36 Dose: 40 mg Magnesium Sulfate 2 gm/ Premix 50 mls @ 12.5 mls/hr IV ONETIME ONE Stop: 08/20/18 16:45 Insulin Glargine (Lantus Solostar) 30 units SUBCUT DAILY [facility] Insulin Human Lispro (Humalog) 0 unit SUBCUT QIDACANDBED [facility]; Protocol Last Admin: 08/20/18 11:44 Dose: 6 units Levothyroxine Sodium 100 mcg/ (Levothyroxine Sodium 25 mcg) 125 mcg PO DAILY@ 0730 [facility] Last Admin: 08/20/18 07:49 Dose: 125 mcg Lisinopril (Prinivil) 2.5 mg PO DAILY [facility] Last Admin: 08/20/18 08:41 Dose: 2.5 mg Magnesium Hydroxide (Milk Of Magnesia) 30 ml PO BID PRN PRN Reason: Constipation Magnesium Oxide (Magnesium Oxide) 400 mg PO BID [facility] Last Admin: 08/20/18 08:42 Dose: 400 mg Metformin HCl (Glucophage) 1,000 mg PO BIDMEALS [facility] Last Admin: 08/20/18 07:49 Dose: 1,000 mg Ondansetron HCl (Zofran) 4 mg IV Q4H PRN PRN Reason: Nausea/Vomiting Oxycodone HCl (Oxycodone) 5 mg PO Q4H PRN PRN Reason: Pain (moderate 4-6) Polyethylene Glycol (Miralax) 17 gm PO DAILY PRN PRN Reason: Constipation Sodium Chloride (Saline Flush) 10 ml FLUSH ASDIRECTED PRN PRN Reason: Keep Vein Open Discontinued Medications Doxycycline Hyclate (Vibramycin) 100 mg PO ONETIME ONE Stop: 08/18/18 08:15 Last Admin: 08/18/18 08:37 Dose: 100 mg Sodium Chloride (Normal Saline) 1,000 mls @ 999 mls/hr IV ASDIRECTED [facility] Last Admin: 08/18/18 07:39 Dose: 999 mls/hr Doxycycline Hyclate 100 mg/ (Sodium Chloride) 100 mls @ 100 mls/hr IV Q12H [facility] Last Admin: 08/20/18 03:08 Dose: 100 mls/hr Sodium Chloride (Normal Saline) 1,000 mls @ 125 mls/hr IV ASDIRECTED [facility] Last Admin: 08/19/18 07:04 Dose: 125 mls/hr Magnesium Sulfate 2 gm/ Premix 50 mls @ 25 mls/hr IV Q6H [facility] Stop: 08/19/18 21:59 Last Admin: 08/19/18 19:43 Dose: 25 mls/hr Insulin Glargine (Lantus Solostar) 35 units SUBCUT DAILY [facility] Last Admin: 08/18/18 08:01 Dose: 35 units Insulin Glargine (Lantus Solostar) 35 units SUBCUT DAILY [facility] Insulin Glargine (Lantus Solostar) 20 units SUBCUT DAILY [facility] Last Admin: 08/20/18 08:42 Dose: 20 units Insulin Human Lispro (Humalog) 0 unit SUBCUT QIDACANDBED [facility]; Protocol Last Admin: 08/18/18 17:18 Dose: Not Given Insulin Human Lispro (Humalog) 14 unit SUBCUT ONETIME ONE Stop: 08/18/18 13:46 Last Admin: 08/18/18 13:35 Dose: 14 unit Insulin Human Lispro (Humalog) 16 unit SUBCUT ONETIME STA Stop: 08/18/18 16:31 Last Admin: 08/18/18 16:49 Dose: 16 unit Metformin HCl (Glucophage) 1,000 mg PO ONETIME ONE Stop: 08/18/18 07:49 Last Admin: 08/18/18 08:00 Dose: 1,000 mg Non-Formulary Medication ([facility] [[facility] Exam Quality Assessment: No: Supplemental Oxygen General: Alert, Oriented, Cooperative, No Acute Distress Lungs: Normal Respiratory Effort Cardiovascular: Regular Rate, Regular Rhythm GI/Abdominal Exam: Soft, No Distention Extremities: No Pedal Edema Psy/Mental Status: Alert, Normal Affect - Problem List Review Problem List Initiated/Reviewed/Updated: Yes - My Orders Last 24 Hours: My Active Orders 08/20/18 10:23 Magnesium Hydroxide [Milk of Magnesia] 30 ml PO BID PRN 08/20/18 12:46 Magnesium Sulfate/Water [Magnesium Sulfate in Water Premix] 2 gm Premix Bag 1 bag IV ONETIME 08/20/18 12:47 Communication Order [RC] PRN Communication Order [RC] PRN 08/20/18 13:00 Doxycycline [Vibramycin] 100 mg PO BID 08/20/18 17:00 Insulin Lispro [HumaLOG] See Protocol SUBCUT QIDACANDBED 08/21/18 05:00 BASIC METABOLIC PANEL,BMP [CHEM] Timed CBC W/O DIFF,HEMOGRAM [HEME] Timed (1) 08/21/18 09:00 Insulin Glarg,Human.Rec.Analog [LantUS Solostar] 30 units SUBCUT DAILY - Plan Plan:: ASSESSMENT AND PLAN ANAPLASMOSIS - most likely cause of recent symptoms and weakness, history is very vague but he is been not aware of any specific fevers. Multiple ticks removed in the emergency room including an engorged tick. Clinically improving with management for anaplasmosis. -Tick serology pending -Saline lock IV -Doxycycline 100 mg twice daily -Physical therapy for generalized weakness TYPE 2 DIABETES MELLITUS - appears to be a fairly brittle diabetic. Blood sugars fairly elevated yesterday and again this morning. -Lantus insulin to 30 units daily -Low dose sliding scale Humalog -Metformin 1 g by mouth twice a day -4 times a day glucometers MAINTENANCE ISSUES -DVT prophylaxis;Lovenox 40 mg subcutaneous daily -GI prophylaxis;Not indicated -Ladnry catheter;Not indicated -Nutrition; consistent carb diet DISPOSITION - anticipate discharge to the custodial after the hospital stay. Blaze Dimas M.D.
[2018-08-20] MEDS: Doxycycline 100 MG Cap PO SCH ×2 (13:51→21:20)
[2018-08-20] MEDS: Enoxaparin 40 MG/0.4 ML Syringe SUBCUT SCH (13:51)
[2018-08-20] MEDS ORDERED: Magnesium Sulfate/Water 2 GM in Premix Bag 1 BAG IV ONE (14:00)
[2018-08-21] MEDS: Levothyroxine 100 MCG, Levothyroxine 25 MCG PO SCH ×2 (07:41)
[2018-08-21] MEDS: metFORMIN 500 MG Tab PO SCH (07:42)
[2018-08-21] MEDS: Insulin Lispro 100 Unit/ML 3 ML KwikPen SUBCUT SCH ×2 (07:42→11:24)
[2018-08-21] MEDS: Lisinopril 2.5 MG Tab PO SCH (08:27)
[2018-08-21] MEDS: Doxycycline 100 MG Cap PO SCH (08:28)
[2018-08-21] MEDS: Magnesium Oxide 400 MG Tab PO SCH (08:28)
[2018-08-21] MEDS ORDERED: Insulin Glargine,Human Rec. Analog 100 Units/ML 3 ML Pen SUBCUT SCH (09:00)
--- NOTE | 2018-08-21 11:53 | PCM.DCSUM1 ---
Discharge Summary - Hospital Course Brief History: 67-year-old male with history of insulin-dependent diabetes mellitus who presented with weakness, lethargy and hypoglycemia. 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 Diagnosis: Stroke: No - Discharge Data Discharge Date: 08/21/18 Discharge Disposition: DC/Tfer to SNF 03 Condition: Good - Discharge Diagnosis/Problem(s) (1) Anaplasmosis SNOMED Code(s): 147458141 ICD Code: A77.49 - OTHER EHRLICHIOSIS Status: Acute Current Visit: Yes (2) Diabetes mellitus, type II, insulin dependent SNOMED Code(s): 472355868 ICD Code: E11.9 - TYPE 2 DIABETES MELLITUS WITHOUT COMPLICATIONS; Z79.4 - [employer] (CURRENT) USE OF INSULIN Status: Chronic Current Visit: Yes - Patient Summary/Data Consults: Consultations 08/18/18 12:29 PT Evaluation and Treatment [CONS] Routine Please Evaluate and Treat. PT Reason for Consult: Weakness This query below is only for informational purposes and is not editable. Labs Pending at D/C: Serologies for Lyme disease, anaplasmosis and babesiosis Hospital Course: Tom presented to the emergency room after being found on the floor in his camper/home. In the ambulance he was noted to be hypoglycemic and did improve some with IV dextrose. Workup in the emergency room revealed some persistence of his hypoglycemia. Laboratory studies revealed some dehydration but no impressive findings other than thrombocytopenia. Multiple ticks were removed from the patient and some of them were engorged. Anaplasmosis was suspected as the cause for his generalized weakness. He he was admitted to the hospital for further management. He was started on doxycycline for management of presumed anaplasmosis. Serologies for Lyme disease, anaplasmosis and babesiosis were obtained and sent to a reference lab. He received IV fluid hydration and physical therapy. Over the next couple of days he did show a fair amount improvement in his strength. Initially he had a great deal of difficulty even moving around in bed and by the end of the hospital stay was able to be up and moving around with a walker. We did have an additional episode of hypoglycemia during the hospital stay but his insulin has been adjusted and we have seen improvement since that time. He has not had any fevers. His white count has remained normal. Platelet level has been slowly rising with antibiotic therapy. His kidney function has remained stable and his electro-lytes have been acceptable. With his ongoing weakness I think he would benefit from short-term subacute rehabilitation before returning to his home. The patient does desire to return to his home which is currently an RV. He is stable and safe for discharge at this time. He would benefit from physical and occupational therapy. He will need 35 additional doses of doxycycline. - Patient Instructions Diet: Diabetic Diet (1800 dilip ADA diet ) Activity: As Tolerated Showering/Bathing: May Shower Notify Provider of: Fever, Increased Pain, Nausea and/or Vomiting Other/Special Instructions: 1. You were in the hospital for management of generalized weakness that I suspect was caused by anaplasmosis. I would recommend 35 additional doses of doxycycline. You should take 100 mg twice daily. Your next dose is due tonight. Also noted at the time of presentation was a low blood sugar but your blood sugars have normalized and I would recommend continuing your usual home medications. 2. Continue your other medications as previously prescribed. 3. Check blood sugars daily before breakfast. 4. Code stutus - full code. 5. Referral to physical and occupational therapy for strengthening of the setting of generalized weakness due to acute anaplasmosis. 6. Seek medical attention if you fever greater than 101, profound weakness or if you develop persistent diarrhea - Discharge Plan *PRESCRIPTION DRUG MONITORING PROGRAM REVIEWED*: Not Applicable *COPY OF PRESCRIPTION DRUG MONITORING REPORT IN PATIENT MICHAEL: Not Applicable Prescriptions/Med Rec: Doxycycline [Vibramycin] 100 mg PO BID #35 cap L. Acidophilus/Pectin, [place] [Acidophilus Probiotic] 1 each PO BID #35 capsule Home Medications: Home Meds Levothyroxine Sodium [Synthroid] 125 mcg PO DAILY 03/26/18 [History] Lisinopril 2.5 mg PO DAILY 03/26/18 [History] Magnesium Oxide 420 mg PO DAILY 03/26/18 [History] metFORMIN [Glucophage] 1,000 mg PO BIDMEALS 03/26/18 [History] Insulin Glarg,Human.Rec.Analog [Lantus Solostar] 35 unit SUBCUT DAILY 08/17/18 [ History] Doxycycline [Vibramycin] 100 mg PO BID #35 cap 08/21/18 [Rx] L. Acidophilus/Pectin, [place] [Acidophilus Probiotic] 1 each PO BID #35 capsule 08/21/18 [Rx] Oxygen Therapy Mode: Room Air Patient Handouts: Doxycycline tablets or capsules, Hypoglycemia, [id number] Referrals: PCP,None [Ordering Only Provider] - (follow up with your primary care in 1-2 weeks ) - Discharge Summary/Plan Comment DC Time >30 min.: Yes (40 - new [facility] discharge ) - Patient Data Vitals - Most Recent: Last Vital Signs Temp 36.4 C 08/21/18 10:35 Pulse 98 08/21/18 10:35 Resp 18 08/21/18 10:35 BP 116/60 08/21/18 10:35 Pulse Ox 93 L 08/21/18 10:35 Weight - Most Recent: 82.554 kg I&O - Last 24 hours: Intake & Output 08/20/18 08/21/18 08/21/18 22:59 06:59 14:59 Output Total 1100 Balance -1100 Lab Results - Last 24 hrs: Laboratory Results - last 24 hr 08/21/18 08/21/18 08/21/18 Range/Units 04:15 04:15 04:59 WBC 7.6 (4.5-11.0) K/uL RBC 3.76 L (4.30-5.90) M/uL Hgb 12.4 (12.0-15.0) g/dL Hct 37.0 L (40.0-54.0) % MCV 98 (80-98) fL MCH 33 H (27-31) pg MCHC 34 (32-36) % Plt Count 161 (150-400) K/uL Sodium 139 L (140-148) mmol/L Potassium 4.7 (3.6-5.2) mmol/L Chloride 104 (100-108) mmol/L Carbon Dioxide 29 (21-32) mmol/L Anion Gap 10.7 (5.0-14.0) mmol/L BUN 22 H (7-18) mg/dL Creatinine 1.0 (0.8-1.3) mg/dL Est Cr Clr Drug Dosing 67.70 mL/min Estimated GFR (MDRD) > 60 (>60) Glucose 226 H (74-106) mg/dL Calcium 9.0 (8.5-10.1) mg/dL HIV-1 Ab Rapid Screen Non-reactive (NON-REACT.) Med Orders - Current: Current Medications Acetaminophen (Tylenol) 650 mg PO Q4H PRN PRN Reason: Pain (Mild 1-3)/fever Dextrose (Glutose 15) 15 gm PO ONETIME PRN PRN Reason: Hypoglycemia Last Admin: 08/19/18 07:33 Dose: 15 gm Dextrose/Water (Dextrose 50% In Water) 50 ml IV ONETIME PRN PRN Reason: Hypoglycemia Doxycycline Hyclate (Vibramycin) 100 mg PO BID [facility] Last Admin: 08/21/18 08:28 Dose: 100 mg Enoxaparin Sodium (Lovenox) 40 mg SUBCUT Q24H [facility] Last Admin: 08/20/18 13:51 Dose: 40 mg Insulin Glargine (Lantus Solostar) 30 units SUBCUT DAILY [facility] Last Admin: 08/21/18 08:28 Dose: 30 units Insulin Human Lispro (Humalog) 0 unit SUBCUT QIDACANDBED [facility]; Protocol Last Admin: 08/21/18 11:24 Dose: 2 unit Levothyroxine Sodium 100 mcg/ (Levothyroxine Sodium 25 mcg) 125 mcg PO DAILY@ 0730 [facility] Last Admin: 08/21/18 07:41 Dose: 125 mcg Lisinopril (Prinivil) 2.5 mg PO DAILY [facility] Last Admin: 08/21/18 08:27 Dose: 2.5 mg Magnesium Hydroxide (Milk Of Magnesia) 30 ml PO BID PRN PRN Reason: Constipation Magnesium Oxide (Magnesium Oxide) 400 mg PO BID [facility] Last Admin: 08/21/18 08:28 Dose: 400 mg Metformin HCl (Glucophage) 1,000 mg PO BIDGAALS [facility] Last Admin: 08/21/18 07:42 Dose: 1,000 mg Ondansetron HCl (Zofran) 4 mg IV Q4H PRN PRN Reason: Nausea/Vomiting Oxycodone HCl (Oxycodone) 5 mg PO Q4H PRN PRN Reason: Pain (moderate 4-6) Polyethylene Glycol (Miralax) 17 gm PO DAILY PRN PRN Reason: Constipation Sodium Chloride (Saline Flush) 10 ml FLUSH ASDIRECTED PRN PRN Reason: Keep Vein Open Discontinued Medications Doxycycline Hyclate (Vibramycin) 100 mg PO ONETIME ONE Stop: 08/18/18 08:15 Last Admin: 08/18/18 08:37 Dose: 100 mg Sodium Chloride (Normal Saline) 1,000 mls @ 999 mls/hr IV ASDIRECTED [facility] Last Admin: 08/18/18 07:39 Dose: 999 mls/hr Doxycycline Hyclate 100 mg/ (Sodium Chloride) 100 mls @ 100 mls/hr IV Q12H [facility] Last Admin: 08/20/18 03:08 Dose: 100 mls/hr Sodium Chloride (Normal Saline) 1,000 mls @ 125 mls/hr IV ASDIRECTED [facility] Last Admin: 08/19/18 07:04 Dose: 125 mls/hr Magnesium Sulfate 2 gm/ Premix 50 mls @ 25 mls/hr IV Q6H [facility] Stop: 08/19/18 21:59 Last Admin: 08/19/18 19:43 Dose: 25 mls/hr Magnesium Sulfate 2 gm/ Premix 50 mls @ 25 mls/hr IV ONETIME ONE Stop: 08/20/18 15:59 Last Admin: 08/20/18 13:50 Dose: 25 mls/hr Insulin Glargine (Lantus Solostar) 35 units SUBCUT DAILY [facility] Last Admin: 08/18/18 08:01 Dose: 35 units Insulin Glargine (Lantus Solostar) 35 units SUBCUT DAILY [facility] Insulin Glargine (Lantus Solostar) 20 units SUBCUT DAILY [facility] Last Admin: 08/20/18 08:42 Dose: 20 units Insulin Human Lispro (Humalog) 0 unit SUBCUT QIDACANDBED [facility]; Protocol Last Admin: 08/18/18 17:18 Dose: Not Given Insulin Human Lispro (Humalog) 14 unit SUBCUT ONETIME ONE Stop: 08/18/18 13:46 Last Admin: 08/18/18 13:35 Dose: 14 unit Insulin Human Lispro (Humalog) 16 unit SUBCUT ONETIME STA Stop: 08/18/18 16:31 Last Admin: 08/18/18 16:49 Dose: 16 unit Insulin Human Lispro (Humalog) 0 unit SUBCUT QIDACANDBED [facility]; Protocol Last Admin: 08/20/18 11:44 Dose: 6 units Metformin HCl (Glucophage) 1,000 mg PO ONETIME ONE Stop: 08/18/18 07:49 Last Admin: 08/18/18 08:00 Dose: 1,000 mg Non-Formulary Medication (Metformin [Glucophage]) 1,000 mg PO BIDMEALS JOSEPHINE - Exam Quality Assessment: Denies: Supplemental Oxygen General: Reports: Alert, Oriented, Cooperative, No Acute Distress Lungs: Reports: Normal Respiratory Effort Cardiovascular: Reports: Regular Rate, Regular Rhythm GI/Abdominal Exam: Soft, No Distention Extremities: No Pedal Edema Psy/Mental Status: Reports: Alert, Normal Affect
[2018-08-22 09:13] LABS: HBSAG SCREEN Negative (Negative)
[2018-08-22 11:11] LABS: LYME IGG/IGM AB <0.91 ISR (0.00-0.90)
[2018-08-22 14:09] LABS: E. CHAFFEENSIS (HME) IGG TITER Negative (Neg:<1:64); E. CHAFFEENSIS (HME) IGM TITER Negative (Neg:<1:20)
[2018-08-22 17:08] LABS: BABESIA MICROTI IGG <1:10 (Neg:<1:10); BABESIA MICROTI IGM <1:10 (Neg:<1:10)
== END 2018-08-21 13:30 | DRG 869 ==
LOC: JP.ED 20:39 → UNDOADMIN 08-18 10:14 → JP.MS 08-18 10:14
PROVIDERS: ADMIT Hospitalist; ATTEND Internal Medicine
DX: A77.49 Other ehrlichiosis (principal); E11.65 Type 2 diabetes mellitus with hyperglycemia; E11.649 Type 2 diabetes mellitus with hypoglycemia without coma; Z79.4 Long term (current) use of insulin; E86.0 Dehydration; W57.XXXA Bitten or stung by nonvenomous insect and other nonvenomous arthropods, initial encounter; Y92.009 Unspecified place in unspecified non-institutional (private) residence as the place of occurrence of the external cause; Y92.099 Unspecified place in other non-institutional residence as the place of occurrence of the external cause; Z88.8 Allergy status to other drugs, medicaments and biological substances; Z79.899 Other long term (current) drug therapy
CPT/HCPCS: 36415; 71045; 80048; 80053; 81001; 82550; 82962; 83605; 83735; 84443; 84484; 85025; 85027; 85610; 86140; 86618; 86666; 86666-59; 86753; 86803; 87340; 87449; 93005; 96360; 97162-GP; 97530-GP; 99284-25; A9270-GY; J1650; J1815; J1815-GY; J3475; J3490; J7030